=== PATIENT | female | born 1980 | race Caucasian/White ===

== ENCOUNTER 2018-04-06 21:51 | Emergency (ER) | payer OTHER ==
[~2018-04-06] VITALS: Ht 165.1 cm; Wt 68.0 kg
[~2018-04-06 21:51] MED LIST: NAPROSYN500 MG PO; PHENTERMINE H37.5 M1 PO
[2018-04-06] MEDS ORDERED: ZANAFLEX4 MG PO (23:07)
[2018-04-06] MEDS ORDERED: NABUMETONE 750750 M1 PO (23:07)
[2018-04-06] MEDS ORDERED: NORCO 5-325 TA1 EACH PO (23:07)
[2018-04-06 23:22] VITALS: BP 122/79
== END 2018-04-06 23:22 | disposition home or self-care (01) ==
LOC: M.ERS 21:51
DX: S20.212A Contusion of left front wall of thorax, initial encounter (principal); S39.012A Strain of muscle, fascia and tendon of lower back, initial encounter; M53.3 Sacrococcygeal disorders, not elsewhere classified; Z88.5 Allergy status to narcotic agent; W10.9XXA Fall (on) (from) unspecified stairs and steps, initial encounter; Y93.89 Activity, other specified; Y92.89 Other specified places as the place of occurrence of the external cause; Y99.8 Other external cause status

== ENCOUNTER 2021-03-05 14:12 | Emergency (ER) | payer OTHER ==
[~2021-03-05] VITALS: Ht 165.1 cm; Wt 72.6 kg
[~2021-03-05 14:12] MED LIST changes: +NABUMETONE 750750 M1 PO; +NORCO 5-325 TA1 EACH PO; +ZANAFLEX4 MG PO
--- NOTE | 2021-03-05 16:26 | EKG ---
[place] [address] ELECTROCARDIOGRAM REPORT Name: JAMES WOLFF Room: [facility]#: [id number] Admission: 03/05/21 Attend Phys: Discharge: Date of : 76 Date of Service: 03/05/21 1418 Report #: [id number] THIS REPORT FOR: //name// [facility] ED Test Date: 2021-03-05 Test Time: 14:18:30 Pat Name: JAMES WOLFF Department: Room: Gender: Maintenance Service Supervisor: : 1980 Requested By: Colt Lechuga Order Number: [id number] MD: Josué Lorenzana Measurements Intervals [place] Rate: 86 P: -40 GA: 146 QRS: 11 QRSD: 106 T: 24 QT: 376 QTc: 450 Interpretive Statements Sinus rhythm RSR' in V1 or V2, right VCD or RVH No previous ECG available for comparison Electronically Signed On 03-05-2021 16:26:31 FACILITY SECURITY OFFICER by Josué Lorenzana [email or web address] <ELECTRONICALLY SIGNED> By: Josué Lorenzana MD, LOCATED [facility]IN [facility] 03/05/21 1626 1418 1418 Josué Lorenzana MD, [facility] /EPI
[2021-03-05 17:05] VITALS: BP 132/83
== END 2021-03-05 17:06 | disposition home or self-care (01) ==
LOC: M.ERS 14:12
DX: R07.89 Other chest pain (principal); Z88.5 Allergy status to narcotic agent